=== PATIENT | female | born 1995 | race African-American/Black ===

== ENCOUNTER 2021-02-16 14:52 | Inpatient (IN) ==
[2021-02-16 15:46] LABS: Bacteria,Urine Occasional /HPF (Few); Bilirubin,Urine Negative (Negative); Blood, Urine Moderate mg/dL (Negative); Glucose,Urine (UA) Negative (Negative); Ketones,Urine Negative (Negative); Mucus,Urine Many /LPF (Occasional); Nitrite,Urine Negative (Negative); Protein,Urine 30 MG/DL; RBC,Urine 5 /HPF (0-4); Squamous Epithelial Cell,Urine Moderate /HPF (0-10); Urine Appearance Slightly Hazy (Clear); Urine Color Yellow (Yellow); Urine Specific Gravity 1.021 (1.001-1.035); Urine Urobilinogen < 2.0 EU/DL (0.2-1.0)
[2021-02-16 16:09] LABS: Barbiturates Screen,Urine Negative (Negative); Benzodiazepines Screen,Urine Negative (Negative); Cannabinoid Screen,Urine Positive (Negative); Opiate Screen,Urine Negative (Negative); Phencyclidine Screen,Urine Negative (Negative)
[2021-02-16 16:59] LABS: Basophils % 0.4 % (0.0-0.8); Eosinophils # 0.2 10*3/uL (0.0-0.87); Eosinophils % 2.4 % (0.00-10.9); Hematocrit 23.9 VOL% (35.7-47.0); Immature Granulocytes % 0.7 %; Immature Granulocytes Absolute 0.05 #; Lymphocytes # 1.6 10*3/uL (1.4-4.0); Lymphocytes % 22.8 % (21.3-54.2); Mean Corpuscular HGB Conc 29.3 GM/DL (32-36); Mean Corpuscular Volume 78.6 FL (87-102); Monocytes % 5.1 % (1.7-12.7); NRBC # 0.08 10*3/uL; Neutrophils % 68.6 % (38.7-73.9); Platelet Count 294 T/CUMM (130-400); Red Blood Count 3.04 MC/CUMM (3.8-5.5); Red Cell Distribution Width 16.8 % (9.3-17.3); White Blood Count 7.2 T/CUMM (4-12)
[2021-02-16] MEDS ORDERED: SODIUM CHLORIDE 0.9% 1,000 ML IV PRN (19:18)
[2021-02-17 07:07] LABS: Basophils % 0.4 % (0.0-0.8); Eosinophils # 0.1 10*3/uL (0.0-0.87); Hematocrit 26.6 VOL% (35.7-47.0); Hemoglobin 7.9 GM/DL (12.0-16.0); Immature Granulocytes % 0.4 %; Immature Granulocytes Absolute 0.03 #; Lymphocytes # 1.9 10*3/uL (1.4-4.0); Lymphocytes % 27.5 % (21.3-54.2); Mean Corpuscular HGB Conc 29.7 GM/DL (32-36); Mean Corpuscular Volume 78.5 FL (87-102); Mean Platelet Volume 9.6 FL (9.6-12.0); Monocytes % 5.8 % (1.7-12.7); NRBC # 0.07 10*3/uL; Neutrophils % 63.9 % (38.7-73.9); Platelet Count 300 T/CUMM (130-400); Red Blood Count 3.39 MC/CUMM (3.8-5.5); Red Cell Distribution Width 16.7 % (9.3-17.3); White Blood Count 6.9 T/CUMM (4-12)
[2021-02-17 07:31] LABS: Band Neutrophils 1 % (0-10); Lymphocytes 30 % (20-55); Metamyelocytes 1 %; Nucleated Red Blood Cells 1 (0-5); Platelet Estimate Normal; Segmented Neutrophils 62 % (50-85); Total Cells Counted 100
[2021-02-17] MEDS ORDERED: SODIUM CHLORIDE 0.9% 1,000 ML IV PRN (07:31)
[2021-02-17 07:32] LABS: Anisocytosis 2+
[2021-02-17] MEDS ORDERED: ceFAZolin 3,000 MG in SYRINGE 1 EACH IV ONE (09:22)
[2021-02-17] MEDS ORDERED: CITRIC ACID/SODIUM CITRATE 30 ML UDCUP PO ONE (09:22)
[2021-02-17] MEDS ORDERED: BETAMETH SODIUM PHOS/ACETATE 30 MG/5 ML VIAL IM ONE (09:26)
[2021-02-17] MEDS ORDERED: FAMOTIDINE 20 MG/2 ML VIAL IV ONE ×2 (09:37→09:51)
[2021-02-17] MEDS ORDERED: ONDANSETRON 4 MG/2 ML VIAL ONE (09:50)
[2021-02-17] MEDS ORDERED: BUPIVACAINE SPINAL 0.75% 2 ML AMP SPINAL ONE (09:50)
[2021-02-17] MEDS ORDERED: miSOPROStoL 200 MCG TABLET ONE (10:08)
[2021-02-17] MEDS ORDERED: TRANEXAMIC ACID 1,000 MG/10 ML VIAL ONE (10:08)
[2021-02-17] MEDS ORDERED: OXYTOCIN/LR 20 UNIT/1,000 ML BAG IV ONE ×2 (10:08→11:03)
[2021-02-17] MEDS ORDERED: METHYLERGONOVINE 0.2 MG/1 ML AMP ONE (10:09)
[2021-02-17] MEDS ORDERED: CARBOPROST TROMETHAMINE 250 MCG/ML AMP IM ONE (10:09)
[2021-02-17] MEDS ORDERED: MIDAZOLAM 2 MG/2 ML VIAL ONE (10:42)
[2021-02-17 10:51] LABS: Cord Arterial Blood HCO3 21.6 MMOL/L
[2021-02-17 10:52] LABS: Cord Venous Blood HCO3 23.7 MMOL/L; Cord Venous Blood PO2 28.9 MMHG
[2021-02-17 10:54] LABS: Cord Arterial Blood HCO3 20.1 MMOL/L
[2021-02-17 10:55] LABS: Cord Venous Blood HCO3 23.2 MMOL/L; Cord Venous Blood PO2 24.6 MMHG
[2021-02-17] MEDS ORDERED: ACETAMINOPHEN INJ 1,000 MG/100 ML VIAL IV ONE (10:55)
[2021-02-17] MEDS ORDERED: KETOROLAC 30 MG/1 ML VIAL ONE (10:55)
[2021-02-17 10:59] LABS: Bacteria,Urine Occasional /HPF (Few); Bilirubin,Urine Negative (Negative); Blood, Urine Negative (Negative); Glucose,Urine (UA) Negative (Negative); Ketones,Urine 5 mg/dL (Negative); Mucus,Urine Occasional /LPF (Occasional); Nitrite,Urine Negative (Negative); Protein,Urine Negative; RBC,Urine 1 /HPF (0-4); Urine Appearance CLEAR (Clear); Urine Color Yellow (Yellow); Urine Specific Gravity 1.008 (1.001-1.035); Urine Urobilinogen < 2.0 EU/DL (0.2-1.0)
[2021-02-17] MEDS ORDERED: ACETAMINOPHEN 325 MG TABLET PO PRN (11:03)
[2021-02-17] MEDS ORDERED: RHO(D) IMMUNE GLOBULIN 300 MCG SYRINGE IM ONE (11:03)
[2021-02-17] MEDS ORDERED: ONDANSETRON 4 MG/2 ML VIAL IV PRN (11:03)
[2021-02-17] MEDS ORDERED: LACTATED RINGERS 1,000 ML IV SCH (11:30)
[2021-02-17] MEDS: KETOROLAC 30 MG/1 ML VIAL IV SCH (18:30)
[2021-02-17 18:36] LABS: Basophils % 0.3 % (0.0-0.8); Eosinophils # 0.1 10*3/uL (0.0-0.87); Eosinophils % 0.6 % (0.00-10.9); Hematocrit 29.7 VOL% (35.7-47.0); Immature Granulocytes % 0.4 %; Immature Granulocytes Absolute 0.04 #; Lymphocytes # 1.6 10*3/uL (1.4-4.0); Lymphocytes % 16.7 % (21.3-54.2); Mean Corpuscular HGB Conc 30.6 GM/DL (32-36); Mean Corpuscular Volume 79.4 FL (87-102); Mean Platelet Volume 9.6 FL (9.6-12.0); Monocytes % 5.1 % (1.7-12.7); NRBC # 0.06 10*3/uL; Neutrophils % 76.9 % (38.7-73.9); Platelet Count 277 T/CUMM (130-400); Red Blood Count 3.74 MC/CUMM (3.8-5.5); Red Cell Distribution Width 16.9 % (9.3-17.3); White Blood Count 9.8 T/CUMM (4-12)
[2021-02-17 18:38] LABS: Hemoglobin 9.1 GM/DL (12.0-16.0)
[2021-02-17] MEDS: ACETAMINOPHEN 500 MG TABLET PO SCH ×2 (18:43→22:12)
[2021-02-17] MEDS: DOCUSATE SODIUM 100 MG CAPSULE PO SCH (21:07)
[2021-02-17] MEDS: oxyCODONE/ACETAMINOPHEN 5-325 MG TABLET PO PRN (21:07)
[2021-02-17] MEDS: PANTOPRAZOLE 40 MG TABLET PO SCH (21:15)
[2021-02-17] MEDS: NICOTINE 21 MG/24 HR PATCH TRANSDERM SCH (23:10)
[2021-02-18] MEDS: KETOROLAC 30 MG/1 ML VIAL IV SCH (03:13)
[2021-02-18 06:03] LABS: Basophils % 0.4 % (0.0-0.8); Eosinophils # 0.1 10*3/uL (0.0-0.87); Eosinophils % 1.4 % (0.00-10.9); Hematocrit 27.1 VOL% (35.7-47.0); Hemoglobin 8.2 GM/DL (12.0-16.0); Immature Granulocytes % 0.5 %; Immature Granulocytes Absolute 0.04 #; Lymphocytes # 1.7 10*3/uL (1.4-4.0); Lymphocytes % 21.9 % (21.3-54.2); Mean Corpuscular HGB Conc 30.3 GM/DL (32-36); Mean Corpuscular Volume 80.4 FL (87-102); Mean Platelet Volume 9.6 FL (9.6-12.0); Monocytes % 6.7 % (1.7-12.7); NRBC # 0.06 10*3/uL; Neutrophils % 69.1 % (38.7-73.9); Platelet Count 257 T/CUMM (130-400); Red Blood Count 3.37 MC/CUMM (3.8-5.5); Red Cell Distribution Width 16.7 % (9.3-17.3); White Blood Count 7.8 T/CUMM (4-12)
[2021-02-18] MEDS: oxyCODONE/ACETAMINOPHEN 5-325 MG TABLET PO PRN ×3 (06:25→19:14)
[2021-02-18] MEDS: FERROUS SULFATE 325 MG TABLET PO SCH ×2 (08:38→19:14)
[2021-02-18] MEDS: DOCUSATE SODIUM 100 MG CAPSULE PO SCH ×2 (08:38→19:14)
[2021-02-18] MEDS: PANTOPRAZOLE 40 MG TABLET PO SCH (08:38)
[2021-02-18] MEDS: SIMETHICONE CHEW 80 MG TABLET PO PRN ×2 (08:38→19:14)
[2021-02-18] MEDS: MULTIVITAMIN (PRENATAL) TABLET PO SCH (08:38)
[2021-02-18] MEDS: MAGNESIUM HYDROXIDE SUSP 30 ML UDCUP PO PRN ×2 (08:38→19:13)
[2021-02-18] MEDS: IBUPROFEN 800 MG TABLET PO PRN ×2 (11:57→19:14)
[2021-02-18] MEDS: NICOTINE 21 MG/24 HR PATCH TRANSDERM SCH (23:11)
[2021-02-19] MEDS: oxyCODONE/ACETAMINOPHEN 5-325 MG TABLET PO PRN ×2 (01:07→08:07)
[2021-02-19] MEDS: IBUPROFEN 800 MG TABLET PO PRN ×2 (01:09→08:08)
[2021-02-19] MEDS: DOCUSATE SODIUM 100 MG CAPSULE PO SCH ×2 (01:12→08:07)
[2021-02-19] MEDS: FERROUS SULFATE 325 MG TABLET PO SCH ×2 (01:12→08:08)
[2021-02-19 08:02] VITALS: BP 142/76
[2021-02-19] MEDS: PANTOPRAZOLE 40 MG TABLET PO SCH (08:07)
[2021-02-19] MEDS: MULTIVITAMIN (PRENATAL) TABLET PO SCH (08:08)
[2021-02-19] MEDS: SIMETHICONE CHEW 80 MG TABLET PO PRN (08:08)
[2021-02-19] MEDS: MAGNESIUM HYDROXIDE SUSP 30 ML UDCUP PO PRN (08:08)
[2021-02-19] MEDS ORDERED: DIPH/TET/ACEL PERT BOOSTER VACCINE 0.5 ML VIAL IM ONE (08:59)
== END 2021-02-19 12:55 | disposition home or self-care (01) | DRG 539 ==
LOC: N.LDOUT 14:52 → N.LD 14:54 → N.OB 02-17 14:46
PROVIDERS: ADMIT Obstetrics & Gynecology; ATTEND Obstetrics & Gynecology